=== PATIENT | female | born 1955 | race Caucasian/White ===

== ENCOUNTER → 2019-04-25 | Outpatient (REF) | payer BC ==
[~2019-04-25] MED LIST: COLA100C2 OR; EXCETAB OR; NABU500T OR; PERC5TAB8 OR; PRAV1TAB39 OR; [UNRECOGNIZED DRUG - OTHER] PO; black cohash PO; cranberry supplement PO
== END ==
LOC: M LAB LCGH 16:08
PROVIDERS: ATTEND Family Medicine
DX: L98.9 Disorder of the skin and subcutaneous tissue, unspecified (principal)